=== PATIENT | male | born 1950 | race Caucasian/White ===

== ENCOUNTER 2018-06-20 18:20 | Observation (INO) | payer MEDICARE ==
[2018-06-20 19:29] LABS: BILIRUBIN,URINE NEGATIVE (NEGATIVE); GLUCOSE, URINE (UA) NEGATIVE (NEGATIVE); KETONES,URINE (UA) NEGATIVE (NEGATIVE); LEUKOCYTE ESTERASE, URINE NEGATIVE (NEGATIVE); NITRITE,URINE NEGATIVE (NEGATIVE); OCCULT BLOOD,URINE NEGATIVE (NEGATIVE); PH,URINE 6.5 PH (5.0-7.5); PROTEIN,URINE NEGATIVE (NEGATIVE); UROBILINOGEN,URINE 0.2 (NORMAL) E.U./dL (NORMAL)
[2018-06-20 19:33] LABS: CLARITY,URINE CLEAR (CLEAR)
[2018-06-20 19:54] LABS: BASOPHILS # (AUTO) 0.1 10^3/uL (0.0-0.1); BASOPHILS % (AUTO) 1.4 %; EOSINOPHILS # (AUTO) 0.4 10^3/uL (0.0-0.7); EOSINOPHILS % (AUTO) 3.9 %; HGB - HEMOGLOBIN 13.7 g/dL (14.0-18.0); LYMPHOCYTES # (AUTO) 1.3 10^3/uL (1.5-3.5); LYMPHOCYTES % (AUTO) 12.8 %; MEAN CORPUSCULAR HEMOGLOBIN 30.1 pg (27.0-31.0); MEAN CORPUSCULAR HGB CONC 34.1 g/dL (32.0-36.0); MEAN CORPUSCULAR VOLUME 88.3 fL (80.0-94.0); MEAN PLATELET VOLUME 7.7 fL (7.4-11.4); MONOCYTES % (AUTO) 9.2 %; NEUTROPHILS # (AUTO) 7.6 10^3/uL (1.5-6.6); NEUTROPHILS % (AUTO) 72.7 %; PLT - PLATELET COUNT 201 10^3/uL (130-450); RED BLOOD COUNT 4.54 10^6/uL (4.70-6.10); RED CELL DISTRIBUTION WIDTH 13.1 % (12.0-15.0); WHITE BLOOD COUNT 10.5 x10^3/uL (4.8-10.8)
[2018-06-20 20:04] LABS: ALBUMIN/GLOBULIN RATIO 1.2 (1.0-2.2); BILIRUBIN,TOTAL 0.4 mg/dL (0.2-1.0); CALCIUM 8.8 mg/dL (8.5-10.3); TOTAL PROTEIN 7.3 g/dL (6.7-8.2)
--- NOTE | 2018-06-20 21:10 | ED Physician Documentation ---
PD HPI ABD PAIN - Stated complaint Stated Complaint: ABD PX - Chief complaint Chief Complaint: Abd Pain - History obtained from History obtained from: Patient - History of Present Illness Timing - onset: Today (onset this morning of lower abd pain and cramps, infraumbilical and then toward RLQ. Nausea without vomiting. Firm stool today; no diarrhea.) Timing - duration: Days (1) Timing - details: Gradual onset, Still present Quality: Cramping, Aching, Pain Location: Periumbilical, RLQ Radiation: No: Lower back, Left flank, Right flank Improved by: Laying still Worsened by: Eating, Position, Palpation. No: Breathing Associated symptoms: Fever, Constipation, Loss of appetite. No: Nausea, Vomiting, Diarrhea, Dysuria, Testicular pain Similar symptoms before: Has not had sx before Recently seen: Not recently seen Review of Systems Constitutional: denies: Fever, Chills, Myalgias Nose: denies: Rhinorrhea / runny nose, Congestion Throat: denies: Sore throat Cardiac: denies: Chest pain / pressure Respiratory: denies: Cough GI: reports: Abdominal Pain, Nausea, Constipation (somewhat firm stools recently the past few weeks.). denies: Vomiting, Diarrhea (had episode of diarrhea about 3-4 weeks ago for a day, and then none since, with firm stools instead.) PD PAST MEDICAL HISTORY - Past Medical History Past Medical History: Yes Cardiovascular: High cholesterol Respiratory: None Endocrine/Autoimmune: None GI: GERD : None Psych: None Musculoskeletal: None Derm: None - Past Surgical History Past Surgical History: Yes Ortho: Shoulder arthroplasty HEENT: Cataracts - Present Medications Home Medications: Ambulatory Orders Medication Instructions Recorded Confirmed Clomiphene Citrate 50 mg PO 06/20/18 - Allergies Allergies/Adverse Reactions: Allergies Allergy/AdvReac Type Severity Reaction Status Date / Time Sulfa (Sulfonamide Allergy Anaphylaxis Verified 06/20/18 18:39 Antibiotics) - Social History Does the pt smoke?: No Smoking Status: Never smoker Does the pt drink ETOH?: Yes ETOH Use: Wine Does the pt have substance abuse?: No - Family History Family history: reports: Non contributory - Immunizations Immunizations are current?: Yes - POLST Patient has POLST: No PD ED PE NORMAL - Vitals Vital signs reviewed: Yes - General General: Alert and oriented X 3, Well developed/nourished - HEENT HEENT: Moist mucous membranes, Pharynx benign - Neck Neck: Supple, no meningeal sign, No adenopathy - Cardiac Cardiac: RRR, No murmur - Respiratory Respiratory: Clear bilaterally - Abdomen Abdomen: Normal bowel sounds, Non distended, No organomegaly, Other (There is localized tenderness in the infraumbilical and right lower quadrant area with localized guarding and mild percussion tenderness. There is no generalized rebound nor percussion tenderness. Bowel sounds are present slightly hypoactive. Upper abdomen is not tender.) - Male Male : Deferred - Rectal Rectal: Deferred - Back Back: No CVA TTP - Derm Derm: Normal color, Warm and dry - Extremities Extremities: No tenderness to palpate, Normal ROM s pain, No edema, No calf tenderness / cord - Neuro Neuro: Alert and oriented X 3, No motor deficit, Normal speech Results - Vitals Vitals: Vital Signs - 24 hr 06/20/18 06/20/18 06/20/18 18:35 20:17 21:50 Temperature 37.2 C Heart Rate 99 81 85 Respiratory 20 16 16 Rate Blood Pressure 157/92 H 160/80 H 162/88 H O2 Saturation 99 100 97 06/20/18 23:42 Temperature 36.9 C Heart Rate 88 Respiratory 16 Rate Blood Pressure 165/93 H O2 Saturation 96 Oxygen O2 Source Room air - Labs Labs: Laboratory Tests 06/20/18 06/20/18 06/20/18 19:00 19:46 19:46 WBC 10.5 RBC 4.54 L Hgb 13.7 L Hct 40.0 L MCV 88.3 MCH 30.1 MCHC 34.1 RDW 13.1 Plt Count 201 MPV 7.7 Neut # (Auto) 7.6 H Lymph # (Auto) 1.3 L [place] # (Auto) 1.0 Eos # (Auto) 0.4 Baso # (Auto) 0.1 Absolute Nucleated RBC 0.00 Nucleated RBC % 0.0 Sodium 136 Potassium 4.1 Chloride 102 Carbon Dioxide 27 Anion Gap 7.0 BUN 22 H Creatinine 1.0 Estimated GFR (MDRD) 75 L Glucose 111 H Calcium 8.8 Total Bilirubin 0.4 AST 20 ALT 22 Alkaline Phosphatase 31 L Total Protein 7.3 Albumin 4.0 Globulin 3.3 Albumin/Globulin Ratio 1.2 Lipase 34 Urine Color YELLOW Urine Clarity CLEAR Urine pH 6.5 Ur Specific [place] 1.015 Urine Protein NEGATIVE Urine Glucose (UA) NEGATIVE Urine Ketones NEGATIVE Urine Occult Blood NEGATIVE Urine Nitrite NEGATIVE Urine Bilirubin NEGATIVE Urine Urobilinogen 0.2 (NORMAL) Ur Leukocyte Esterase NEGATIVE Ur Microscopic Review NOT INDICATED Urine Culture Comments NOT INDICATED - Rads (name of study) abd CT Radiology: Prelim report reviewed (acute appendicitis without perforation nor abscess) PD MEDICAL DECISION MAKING - ED course Complexity details: reviewed results (acute appendicitis without perforation nor abscess), considered differential, d/w patient, d/w consultant in ergonomics and safety (I talked with Dr. Hong who is on-call for surgery who will come in and see the patient and write orders. His plan is to do surgery in the morning and so we will overnight the patient in the hospital.) Departure - Departure Disposition: ED Transfer to [facility] Clinical Impression: Abdominal pain Qualifiers: Abdominal location: right lower quadrant Qualified Code(s): R10.31 - Right lower quadrant pain Appendicitis Qualifiers: Appendicitis type: acute appendicitis Acute appendicitis type: with localized peritonitis Appendicitis gangrene presence: without gangrene Appendicitis perforation presence: without perforation Appendicitis abscess presence: without abscess Qualified Code(s): K35.30 - Acute appendicitis with localized peritonitis, without perforation or gangrene Condition: Stable Record reviewed to determine appropriate education?: Yes
[2018-06-20] MEDS ORDERED: SODIUM CHLORIDE 0.9% 1,000 ML IV ONE (21:28)
[2018-06-20] MEDS ORDERED: KETOROLAC 60 MG/2 ML VIAL IVP STA (21:28)
[2018-06-20] MEDS ORDERED: ONDANSETRON 4 MG/2 ML VIAL IVP STA (21:28)
[2018-06-20] MEDS ORDERED: IOPAMIDOL-300 100 ML VIAL ONE (22:17)
[2018-06-20] MEDS ORDERED: IOPAMIDOL-300 100 ML VIAL IVP ONE (22:46)
--- NOTE | 2018-06-20 23:14 | CT Report ---
Reason: lower abd pain, possible divertic/appy Procedure Date: 06/20/2018 Accession Number: [id number] / [id number] Procedure: CT - Abdomen/Pelvis W/ CPT Code: FULL RESULT: EXAM: CT ABDOMEN AND PELVIS EXAM DATE: 06/20/2018 10:45 PM. CLINICAL HISTORY: Increasing central lower abdominal pain since 7 AM. Constipation. COMPARISONS: None. TECHNIQUE: Routine helical CT imaging was performed through the abdomen and pelvis. IV contrast: 100 mL Isovue 300. Enteric contrast: No. Reconstructions: Coronal and sagittal. In accordance with CT protocol optimization, one or more of the following dose reduction techniques were utilized for this exam: automated exposure control, adjustment of mA and/or KV based on patient size, or use of iterative reconstructive technique. FINDINGS: ABDOMEN: Liver: No significant abnormality. Stomach/Distal Esophagus: No significant abnormality. Gallbladder: No significant abnormality. Bile Ducts: No significant abnormality. Pancreas: No significant abnormality. Spleen: No significant abnormality. Kidneys: No suspicious solid appearing lesion. No hydronephrosis. Adrenals: No significant abnormality. Bowel: Mild reactive wall thickening of the base of the cecum. There is no bowel obstruction. There is average amount of retained colonic fecal material. Appendix: Thickened dilated appendix measuring 15 mm. Moderate surrounding inflammatory change. Lymph Nodes: No pathologically enlarged nodes. Vasculature: Normal caliber aorta. Fluid: No significant free fluid. Abdominal Wall: No significant abnormality. Other: No significant abnormality. PELVIS: Prostate and Seminal Vesicles: No significant abnormality. Bladder: No significant abnormality. Lymph Nodes: No pathologically enlarged nodes. Fluid: No significant free fluid. Other: There is a small fat-containing left-sided inguinal hernia. BONES: No suspicious bony lesions. Moderate lower thoracic degenerative change. There is moderate degenerative change about the hip joints bilaterally. LOWER CHEST: No significant consolidation or effusion. IMPRESSION: Acute appendicitis without evidence of perforation or abscess. RADIA
[2018-06-20] MEDS ORDERED: AMPICILLIN/SULBACTAM 3 GM in SODIUM CHLORIDE 0.9% MINIBAG 100 ML IV STA (23:21)
[2018-06-20] MEDS ORDERED: D5.45NS W/20 MEQ KCL 1,000 ML IV SCH (23:45)
[2018-06-20] MEDS ORDERED: SODIUM CHLORIDE FLUSH 0.9% 10 ML SYRINGE IVP PRN (23:53)
[2018-06-20] MEDS ORDERED: MORPHINE 2 MG/ML CARPUJECT IVP PRN (23:53)
[2018-06-20] MEDS ORDERED: HYDROcod/ACETAM 5/325 MG TABLET PO PRN (23:53)
--- NOTE | 2018-06-21 00:02 | HISTORY & PHYSICAL EXAMINATION ---
HPI - Admitted From Admitted from: ED - History Obtained From History obtained from: Patient Exam limitations: No limitations - History of Present Illness Severity at the worst: reports: Mild (1 day of RLQ abdominal pain) PMH/PSH - Past Medical History Cardiovascular: positive: High cholesterol Respiratory: positive: None Endocrine/Autoimmune: positive: None GI: positive: GERD : positive: None Psych: positive: None Musculoskeletal: positive: None Derm: positive: None MRSA Hx?: No - Past Surgical History Ortho: positive: Shoulder arthroplasty HEENT: positive: Cataracts Social & Family Hx - Social History Does the pt smoke?: No Smoking Status: Never smoker Does the pt drink ETOH?: Yes ETOH Use: Wine Does the pt have substance abuse?: No - POLST Patient has POLST: No Meds/Allgy - Home Medications Home Medications: Ambulatory Orders Medication Instructions Recorded Confirmed Clomiphene Citrate 50 mg PO 06/20/18 - Allergies Allergies/Adverse Reactions: Allergies Allergy/AdvReac Type Severity Reaction Status Date / Time Sulfa (Sulfonamide Allergy Anaphylaxis Verified 06/20/18 18:39 Antibiotics) Exam - Vital Signs Vital Signs: Vital Signs x48h Temp Pulse Resp BP Pulse Ox 06/20/18 23:42 36.9 C 88 16 165/93 H 96 06/20/18 21:50 85 16 162/88 H 97 06/20/18 20:17 81 16 160/80 H 100 06/20/18 18:35 37.2 C 99 20 157/92 H 99 - Physical Exam General Appearance: positive: No acute distress Eyes Bilateral: positive: Normal inspection ENT: positive: ENT inspection nml Neck: positive: Nml inspection Respiratory: positive: Chest non-tender Cardiovascular: positive: Regular rate & rhythm Abdomen: positive: Tenderness Back: positive: Nml inspection Skin: positive: Color nml Extremities: positive: Non-tender Neurologic/Psychiatric: positive: Oriented x3 Results - Lab Results Fish Bones: 06/20/18 19:46 06/20/18 19:46 Other Lab Results: Lab Results x24hrs 06/20/18 06/20/18 06/20/18 Range/Units 19:46 19:46 19:00 WBC 10.5 (4.8-10.8) x10^3/uL RBC 4.54 L (4.70-6.10) 10^6/uL Hgb 13.7 L (14.0-18.0) g/dL Hct 40.0 L (42.0-52.0) % MCV 88.3 (80.0-94.0) fL MCH 30.1 (27.0-31.0) pg MCHC 34.1 (32.0-36.0) g/dL RDW 13.1 (12.0-15.0) % Plt Count 201 (130-450) 10^3/uL MPV 7.7 (7.4-11.4) fL Neut # (Auto) 7.6 H (1.5-6.6) 10^3/uL Lymph # (Auto) 1.3 L (1.5-3.5) 10^3/uL [place] # (Auto) 1.0 (0.0-1.0) 10^3/uL Eos # (Auto) 0.4 (0.0-0.7) 10^3/uL Baso # (Auto) 0.1 (0.0-0.1) 10^3/uL Absolute Nucleated RBC 0.00 x10^3/uL Nucleated RBC % 0.0 /100WBC Sodium 136 (135-145) mmol/L Potassium 4.1 (3.5-5.0) mmol/L Chloride 102 (101-111) mmol/L Carbon Dioxide 27 (21-32) mmol/L Anion Gap 7.0 (6-13) BUN 22 H (6-20) mg/dL Creatinine 1.0 (0.6-1.2) mg/dL Estimated GFR (MDRD) 75 L (>89) Glucose 111 H (70-100) mg/dL Calcium 8.8 (8.5-10.3) mg/dL Total Bilirubin 0.4 (0.2-1.0) mg/dL AST 20 (10-42) IU/L ALT 22 (10-60) IU/L Alkaline Phosphatase 31 L (42-121) IU/L Total Protein 7.3 (6.7-8.2) g/dL Albumin 4.0 (3.2-5.5) g/dL Globulin 3.3 (2.1-4.2) g/dL Albumin/Globulin Ratio 1.2 (1.0-2.2) Lipase 34 (22-51) U/L Urine Color YELLOW Urine Clarity CLEAR (CLEAR) Urine pH 6.5 (5.0-7.5) PH Ur Specific [place] 1.015 (1.002-1.030) Urine Protein NEGATIVE (NEGATIVE) mg/dL Urine Glucose (UA) NEGATIVE (NEGATIVE) mg/dL Urine Ketones NEGATIVE (NEGATIVE) mg/dL Urine Occult Blood NEGATIVE (NEGATIVE) Urine Nitrite NEGATIVE (NEGATIVE) Urine Bilirubin NEGATIVE (NEGATIVE) Urine Urobilinogen 0.2 (NORMAL) (NORMAL) E.U./dL Ur Leukocyte Esterase NEGATIVE (NEGATIVE) Ur Microscopic Review NOT INDICATED Urine Culture Comments NOT INDICATED Impression/Plan - Problem List Problem List: 68 yo otherwise healthy man with acute appendicitis. He is stable and comfortable. Plan to admit on IVF and antibiotics for appendectomy in the AM.
[2018-06-21] MEDS: SODIUM CHLORIDE FLUSH 0.9% 10 ML SYRINGE IVP SCH ×2 (00:53→09:25)
[2018-06-21] MEDS: cefOXitin 2 GM in SODIUM CHLORIDE 0.9% MINIBAG 100 ML IV SCH ×2 (00:54→06:42)
[2018-06-21] MEDS ORDERED: BUPIVACAINE 0.5% PF 30 ML VIAL ONE (07:40)
--- NOTE | 2018-06-21 08:26 | ANESTHESIA ---
Pre-Anesthesia VS, & Labs - Diagnosis Acute appendicitis - Procedure Laparoscopic appendectomy Vital Signs: Temp Pulse Resp BP Pulse Ox 36.5 C 73 16 131/74 H 96 06/21/18 08:06 06/21/18 08:06 06/21/18 08:06 06/21/18 08:06 06/21/18 08:06 Height 5 ft 11 in Weight (kg) 86.5 kg Body Mass Index 26.6 - NPO >8 hours - Lab Results Current Lab Results: Laboratory Tests 06/20/18 19:46: Sodium 136, Potassium 4.1, Chloride 102, Carbon Dioxide 27, Anion Gap 7.0, BUN 22 H, Creatinine 1.0, Estimated GFR (MDRD) 75 L, Glucose 111 H, Calcium 8.8, Total Bilirubin 0.4, AST 20, ALT 22, Alkaline Phosphatase 31 L, Total Protein 7.3, Albumin 4.0, Globulin 3.3, Albumin/Globulin Ratio 1.2, Lipase 34 06/20/18 19:46: WBC 10.5, RBC 4.54 L, Hgb 13.7 L, Hct 40.0 L, MCV 88.3, MCH 3 0.1, MCHC 34.1, RDW 13.1, Plt Count 201, MPV 7.7, Neut # (Auto) 7.6 H, Lymph # (Auto) 1.3 L, [place] # (Auto) 1.0, Eos # (Auto) 0.4, Baso # (Auto) 0.1, Absolute Nucleated RBC 0.00, Nucleated RBC % 0.0 Lab results reviewed: Yes Fish Bones: 06/20/18 19:46 06/20/18 19:46 Home Medications and Allergies Home Medications: Ambulatory Orders Clomiphene Citrate 50 mg PO 06/20/18 Active Medications Potassium Chloride/Dextrose/Sod Cl (D5.45ns W/20 Meq Kcl) 1,000 mls @ 100 mls/hr IV .Q10H YINA Last Admin: 06/21/18 00:53 Dose: 100 mls/hr Cefoxitin Sodium 2 gm/ Sodium (Chloride) 100 mls @ 100 mls/hr IV Q6H YINA Last Infusion: 06/21/18 07:49 Dose: Infused Morphine Sulfate (Morphine (Carpuject)) 2 mg IVP Q2HR PRN PRN Reason: Pain 8 to 10 Sodium Chloride (Normal Saline Flush 0.9%) 10 ml IVP PRN PRN PRN Reason: NEEDED PER PROVIDER ORDERS Sodium Chloride (Normal Saline Flush 0.9%) 10 ml IVP 0100,0900,1700 YINA Last Admin: 06/21/18 00:53 Dose: 10 ml Clomiphene Citrate 50 mg PO 06/20/18 Allergies/Adverse Reactions: Allergies Allergy/AdvReac Type Severity Reaction Status Date / Time Sulfa (Sulfonamide Allergy Anaphylaxis Verified 06/20/18 18:39 Antibiotics) Anes History & Medical History - Anesthetic History Anesthesia Complications: reports: No previous complications Family history of Anesthesia Complications: Denies Family history of Malignant Hyperthermia: Denies - Medical History Cardiovascular: reports: High cholesterol Pulmonary: reports: None Gastrointestinal: reports: GERD (Poorly controlled) Urinary: reports: None Neuro: reports: None Musculoskeletal: reports: None Endocrine/Autoimmune: reports: None Blood Disorders: reports: None Skin: reports: None Smoking Status: Former smoker (Quit 25 years ago. 27 year pack history) Psychosocial: reports: No issues indicated - Surgical History Eyes Ears Nose Throat (EENT): Cataracts Orthopedic: Shoulder arthroplasty, Other (Trigger thumb, trigger finger and infected cat bites) Exam General: Alert, Oriented x3, Cooperative, No acute distress Dental: WNL Mouth Openin Fingerbreadth Neck Mobility: Normal Mallampati classification: II Thyromental Distance: 4-6 cm Respiratory: Lungs clear, Normal breath sounds, No respiratory distress, No acc essory muscle use Cardiovascular: Regular rate, Normal S1, Normal S2, No murmurs Mental/Cognitive Status: Alert/Oriented X3, Normal for patient Cognitive Status: Within normal limits Plan Anesthesia Type: General Consent for Procedure(s) Verified and Reviewed: Yes Code Status: Attempt Resuscitation ASA classification: 2-Mild systemic disease Is this case an emergency?: Yes
[2018-06-21] MEDS ORDERED: BUPIVACAINE 0.5%-EPI 1:200000 PF 30 ML VIAL ONE (09:14)
[2018-06-21] MEDS ORDERED: LACTATED RINGERS 1,000 ML IV ONE (09:23)
[2018-06-21] MEDS ORDERED: BUPIVACAINE 0.25%-EPI 1:200000 PF 30 ML VIAL SUBQ ONE ×2 (09:56→10:14)
[2018-06-21] MEDS ORDERED: fentaNYL 100 MCG/2 ML VIAL IVP ONE (10:30)
[2018-06-21] MEDS ORDERED: GLYCOPYRROLATE 1 MG/5 ML VIAL IVP ONE (10:30)
[2018-06-21] MEDS ORDERED: PROPOFOL 1000 MG/100 ML IV ONE (10:30)
[2018-06-21] MEDS ORDERED: MIDAZOLAM 2 MG/2 ML VIAL IVP ONE (10:30)
[2018-06-21] MEDS ORDERED: LIDOCAINE-MPF 2% 5 ML VIAL IM ONE (10:30)
[2018-06-21] MEDS ORDERED: NEOSTIGMINE 1 MG/1 ML 10 ML MDV IVP ONE (10:30)
[2018-06-21] MEDS ORDERED: ACETAMINOPHEN 1,000 MG/100 ML 100 ML IV ONE (10:30)
[2018-06-21] MEDS ORDERED: ROCURONIUM 50 MG/5 ML VIAL IVP ONE (10:30)
[2018-06-21] MEDS ORDERED: ONDANSETRON 4 MG/2 ML VIAL IVP ONE (10:30)
[2018-06-21] MEDS ORDERED: DEXAMETHASONE 4 MG/ML VIAL IVP ONE (10:30)
[2018-06-21] MEDS ORDERED: KETOROLAC 30 MG/ML VIAL ONE (10:44)
[2018-06-21] MEDS ORDERED: fentaNYL 100 MCG/2 ML VIAL ONE (10:57)
[2018-06-21 12:05] VITALS: BP 149/86
--- NOTE | 2018-06-21 12:20 | OPERATIVE REPORT ---
DATE OF SERVICE: 06/21/2018 Physician: Octaviano Smart MD PREOPERATIVE DIAGNOSIS: Acute appendicitis. POSTOPERATIVE DIAGNOSIS: Acute appendicitis. NAME OF PROCEDURE: Laparoscopic appendectomy. SURGEON: Octaviano Smart MD. ANESTHESIA: INDICATIONS FOR PROCEDURE: The patient is a 68-year-old man who presented to the ER early this morning, complaining of 1 day of right lower quadrant pain. He was found to have acute appendicitis. PROCEDURE IN DETAIL: The risks and benefits were explained to the patient. He agreed to the procedure. He was taken to the operating room, placed under general anesthesia, and intubated. The abdomen was prepped and draped. A timeout was performed. Everyone in the room agreed to the procedure. We began by making a 12-mm transumbilical incision. We carried this down through a natural hernia defect into the peritoneal cavity. We inserted a Lilian trocar and secured in place and then insufflated the abdomen to 15 mmHg, then inserted two 5-mm trocars under vision with the camera, 1 above the pubic symphysis and 1 in the left lower quadrant. We identified the appendix, which was moderately inflamed, created a window at the base of the appendix, between the mesoappendix and the appendiceal body, then used the PIHLLIP stapler, a blue load, to transect the body and a white load to transect the mesoappendix. The appendix was then placed in an EndoCatch bag and sent to pathology. The staple lines were examined and found to be flush with the cecum and free of bleeding. All 3 trocars were then removed under vision of the camera. The fascia of the umbilical port site was closed, using 0 prolene stitch, and the skin of all 3 incisions closed, using 4-0 Monocryl and Dermabond. Local anesthetic was infused prior to closure. This terminated the procedure. The patient tolerated well and was extubated in the operating room and taken to recovery room in stable condition. The instrument and lap counts were correct. Dr. Smart was present throughout the entire procedure. ESTIMATED BLOOD LOSS: 5 mL. SPECIMEN: Appendix. COMPLICATIONS: None. PLAN: For the patient to go home from recovery. TD: 06/21/2018 10:34 [facility]ITAL[facility]
--- NOTE | 2018-07-05 10:09 | DISCHARGE SUMMARY ---
Discharge Summary Admit Date: 06/21/18 Discharge Date: 06/21/18 Discharging Provider: amanda Code Status: Attempt Resuscitation Condition at Discharge: Good Discharge Disposition: 01 Home, Self Care - DIAGNOSES Admission Diagnoses: acute appendicitis Discharge Diagnoses with Status of Each Condition: appendicitis successfully treated with an appendectomy - HPI History of Present Illness: 68 yo man presented with acute appendicitis - HOSPITAL COURSE Hospital Course: He underwent an appendectomy and was discharged from recovery. - ALLERGIES Allergies/Adverse Reactions: Allergies Allergy/AdvReac Type Severity Reaction Status Date / Time Sulfa (Sulfonamide Allergy Anaphylaxis Verified 06/20/18 18:39 Antibiotics) - MEDICATIONS Home Medications: Ambulatory Orders Medication Instructions Recorded Confirmed Clomiphene Citrate 50 mg PO MOWEFR@0900 06/20/18 06/21/18 Clomiphene Citrate 25 mg PO SUTUTHSA@0900 06/21/18 06/21/18 Loratadine 10 mg PO DAILY 06/21/18 06/21/18 Cephalexin [Keflex] 500 mg PO Q6H #28 capsule 06/23/18 - PHYSICAL EXAM AT DISCHARGE General Appearance: positive: No acute distress Eyes Bilateral: positive: Normal inspection ENT: positive: ENT inspection nml Neck: positive: Nml inspection Respiratory: positive: Chest non-tender Cardiovascular: positive: Regular rate & rhythm Abdomen: positive: Other (incisions c/d/i) Back: positive: Nml inspection Skin: positive: Color nml Extremities: positive: Non-tender Neurologic/Psychiatric: positive: Oriented x3 - LABS Result Diagrams: 06/20/18 19:46 06/20/18 19:46 - FOLLOW UP Follow Up: 1 week surgery clinic
== END 2018-06-21 14:36 | disposition home or self-care (01) ==
LOC: ED 18:20 → MS2 23:53
PROVIDERS: ADMIT Surgery; ATTEND Surgery
PROC: 0DTJ4ZZ Resection of Appendix, Percutaneous Endoscopic Approach (ICD-10-PCS; principal; 2018-06-21 09:00)
DX: K35.30 Acute appendicitis with localized peritonitis, without perforation or gangrene (principal); K21.9 Gastro-esophageal reflux disease without esophagitis; Z87.891 Personal history of nicotine dependence
CPT/HCPCS: 36415; 44970; 74177; 80053; 81003; 83690; 85025; 96361; 96365; 96375; 99283; 99284; J0131; J7120; Q9967; 81001; 87086; 96366; 96367

== ENCOUNTER 2018-06-23 05:14 | Emergency (ER) | payer MEDICARE ==
[2018-06-23] MEDS ORDERED: cephALEXin 250 MG CAPSULE PO STA (05:36)
--- NOTE | 2018-06-23 05:38 | ED Physician Documentation ---
History of Present Illness - Stated complaint Stated Complaint: UMBILICAL WOUND INFECTION - Chief complaint Chief Complaint: General - History obtained from History obtained from: Patient - History of Present Illness Timing: Yesterday Pain level max: 3 Pain level now: 3 - Additonal information Additional information: Patient is a 68-year-old male who is 2 days status post a laparoscopic appendectomy. States he had yellow/bloody drainage from his umbilicus earlier today and is noticed redness spreading from the umbilicus. Concern for potential infection. No fevers. Nothing makes it better or worse. He contacted the surgeon on-call who recommended coming here for evaluation Review of Systems Constitutional: denies: Fever, Chills GI: denies: Vomiting Musculoskeletal: denies: Neck pain, Back pain PD PAST MEDICAL HISTORY - Past Medical History Cardiovascular: High cholesterol Respiratory: None Neuro: None Endocrine/Autoimmune: None GI: GERD (Poorly controlled) : None Psych: None Musculoskeletal: None Derm: None - Past Surgical History Past Surgical History: Yes Ortho: Shoulder arthroplasty, Other (Trigger thumb, trigger finger and infected cat bites) HEENT: Cataracts - Present Medications Home Medications: Ambulatory Orders Medication Instructions Recorded Confirmed Clomiphene Citrate 50 mg PO MOWEFR@0900 06/20/18 06/21/18 Clomiphene Citrate 25 mg PO SUTUTHSA@0900 06/21/18 06/21/18 Loratadine 10 mg PO DAILY 06/21/18 06/21/18 Cephalexin [Keflex] 500 mg PO Q6H #28 capsule 06/23/18 - Allergies Allergies/Adverse Reactions: Allergies Allergy/AdvReac Type Severity Reaction Status Date / Time Sulfa (Sulfonamide Allergy Anaphylaxis Verified 06/20/18 18:39 Antibiotics) - Social History Does the pt smoke?: No Smoking Status: Former smoker (Quit 25 years ago. 27 year pack history) Does the pt drink ETOH?: Yes Does the pt have substance abuse?: No - Immunizations Immunizations are current?: Yes - POLST Patient has POLST: No PD ED PE NORMAL - Vitals Vital signs reviewed: Yes - General General: Alert and oriented X 3, No acute distress - Abdomen Abdomen: Soft, Other (Incisions are clean dry and intact with the exception of the umbilicus which has what appears to be serosanguineous drainage, however there is approximately 1 cm ring of erythema around the entire umbilicus. Mildly warm and tender.) - Derm Derm: Warm and dry - Neuro Neuro: Alert and oriented X 3 - Psych Psych: Normal mood, Normal affect Results - Vitals Vitals: Vital Signs - 24 hr 06/23/18 06/23/18 05:22 05:58 Temperature 36.8 C 36.2 C L Heart Rate 73 86 Respiratory 18 16 Rate Blood Pressure 181/92 H 147/84 H O2 Saturation 98 98 Oxygen O2 Source Room air PD MEDICAL DECISION MAKING - ED course Complexity details: considered differential, d/w patient ED course: Patient is a 68-year-old male who appears to have cellulitis of the umbilical trocar incision. Will place on Keflex and follow-up closely with his surgeon. He is well-appearing, nontoxic. Afebrile. Patient counseled regarding signs and symptoms for which I believe and urgent re-evaluation would be necessary. Patient with good understanding of and agreement to plan and is comfortable going home at this time This document was made in part using voice recognition software. While efforts are made to proofread this document, sound alike and grammatical errors may occur. Departure - Departure Disposition: 01 Home, Self Care Clinical Impression: Cellulitis Qualifiers: Site of cellulitis: trunk Site of cellulitis of trunk: umbilicus Qualified Code(s): L03.316 - Cellulitis of umbilicus Condition: Good Instructions: ED Infec Skin Cellulitis Follow-Up: Germain Mendosa MD [Provider Admit Priv/Credential] - Within 3 Days (for wound check) Prescriptions: Cephalexin [Keflex] 500 mg PO Q6H #28 capsule Comments: Take all antibiotics until gone. Return if you worsen. Return especially for fevers or worsening redness. Discharge Date/Time: 06/23/18 06:00
[2018-06-23 05:59] VITALS: BP 147/84
== END 2018-06-23 06:00 | disposition home or self-care (01) ==
LOC: ED 05:14
DX: L03.316 Cellulitis of umbilicus (principal); T81.40XA Infection following a procedure, unspecified, initial encounter; Z87.891 Personal history of nicotine dependence
CPT/HCPCS: 99283; A9270